=== PATIENT | male | born 1985 | race Two or more races ===

== ENCOUNTER 2016-04-11 21:34 | Emergency (ER) | payer SELFPAY ==
[2016-04-11] MEDS ORDERED: LORAZEPAM 1 MG TABLET ONE (23:05)
--- NOTE | 2016-04-12 08:31 | RAD ---
CHEST 2 VIEWS HISTORY: Cough and fever. Frontal and lateral chest radiographs dated 04/11/2016. COMPARISON: None. FINDINGS: LUNG VOLUMES: Hyperinflation. FOCAL AIRSPACE OPACITY: No gross airspace consolidation. PLEURAL EFFUSION: None. CARDIOMEDIASTINAL SILHOUETTE: Nonenlarged. PNEUMOTHORAX: None identified. OSSEOUS STRUCTURES: No grossly destructive lesions. IMPRESSION: No acute cardiopulmonary process noted. Hyperinflation can relate to exuberant inspiratory effort in a younger individual versus obstructive pulmonary disease.
== END 2016-04-12 00:20 | disposition home or self-care (01) ==
LOC: ED 21:34
DX: J11.1 Influenza due to unidentified influenza virus with other respiratory manifestations (principal); F15.10 Other stimulant abuse, uncomplicated
CPT/HCPCS: 71020; 99283 ×2; A9270